=== PATIENT | male | born 1950 | race Caucasian/White ===

== ENCOUNTER 2019-06-14 10:44 | Emergency (ER) | payer MEDICARE ==
[~2019-06-14] VITALS: Ht 175.3 cm; Wt 90.9 kg
[2019-06-14 10:53] VITALS: BP 174/95; TEMP 98.7
[2019-06-14 11:26] LABS: BASO # 0.1 (0.0-0.2); BASO % 0.5 % (0.0-2.0); EOS # 0.1 (0.0-0.7); EOS % 0.8 % (0-4.0); GRAN # 12.9 (1.4-6.5); GRAN % 83.5 % (42.2-75.2); HEMATOCRIT 44.4 % (42.0-52.0); LYMPH # 1.3 (1.2-3.4); LYMPH % 8.1 % (20.0-51.0); MEAN CELL VOLUME 92 fl (80.0-100.0); MEAN CORPUSCULAR HEMOGLOBIN 31 pg (27.0-31.0); MEAN CORPUSCULAR HGB CONC 34 g/dl (33.0-37.0); MEAN PLATELET VOLUME 8.9 fl (7.4-10.4); MONO % 6.6 % (1.7-9.3); PLATELET COUNT 297 K/mm3 (130-400); RED BLOOD COUNT 4.85 M/mm3 (4.20-5.60); REDCELL DISTRIBUTION WIDTH-CV 13.2 % (11.5-14.5)
[2019-06-14 11:36] LABS: ALBUMIN 4.5 gm/dL (3.5-5.0); BILIRUBIN,TOTAL 0.6 mg/dL (0.0-1.0); C-REACTIVE PROTEIN 0.9 mg/dL (0.0-0.9); CREATININE, serum 0.8 (0.66-1.25); POTASSIUM 4.1 mmol/L (3.4-5.0); TOTAL PROTEIN 7.7 gm/dL (6.4-8.2)
[2019-06-14] MEDS ORDERED: AMOXICILLIN 8751 TAB PO (11:55)
[2019-06-14 12:07] VITALS: PULSE 93
== END 2019-06-14 12:07 | disposition home or self-care (01) ==
LOC: COL.ER 10:44
PROVIDERS: Physician Assistant
DX: S51.851A Open bite of right forearm, initial encounter (principal); K21.9 Gastro-esophageal reflux disease without esophagitis; W55.01XA Bitten by cat, initial encounter; Y92.009 Unspecified place in unspecified non-institutional (private) residence as the place of occurrence of the external cause